=== PATIENT | female | born 1980 | race Two or more races ===

== ENCOUNTER → 2018-07-28 | Outpatient (CLI) | payer SELFPAY ==
--- NOTE | 2018-07-28 11:02 | [facility]IC ---
Pelvic and transvaginal ultrasound History: Left lower quadrant pelvic pain Comparison: None. Findings: Multiple sonographic images of the pelvis are submitted. Endometrium measured about 1 cm in thickness. Right ovary measured 3.5 x 2.4 x 3.2 cm. There is hypoechoic lesion near the right ovary about 3.4 x 2.2 x 1.4 cm not associated with internal vascularity. There is a hypoechoic lesion located superior to the left uterus near the left adnexa about 2.2 x 2 x 2.2 cm in size not associated with internal vascularity on color Doppler imaging. Left ovary is not seen. Transvaginal ultrasound: Multiple transvaginal sonographic images of the pelvis are submitted. There are a couple of nabothian cysts. Uterus measured about 10 x 4.5 x 7.2 cm. Endometrium measured 0.8 cm. Right ovary measured 3.9 x 3.3 x 2.9 cm, normal low resistance vascularity and color flow. Left ovary measured 3.2 x 2.3 x 1.6 cm with normal low color-flow and low resistance vascularity. No significant free fluid is demonstrated. Impression: 1. As seen on transabdominal imaging, there are paraovarian cysts bilaterally, no free fluid. No other abnormality is demonstrated. Electronically signed by: Franklin Noguera MD (07/28/2018 10:57 AM) [id number]
== END | disposition home or self-care (01) ==
LOC: KCIC US 09:05
DX: N83.292 Other ovarian cyst, left side (principal); N83.291 Other ovarian cyst, right side; N88.8 Other specified noninflammatory disorders of cervix uteri
CPT/HCPCS: 76830; 76856